=== PATIENT | male | born 1950 | race Caucasian/White ===

== ENCOUNTER 2024-08-06 10:14 | Outpatient (CLI) | payer MEDICARE, SELFPAY ==
--- NOTE | ~2024-08-06 | CT_ITS ---
CT Scan of the Chest without Contrast: Clinical Indication: Pleural effusion Technique: Contiguous sections were acquired throughout the chest without intravenous contrast. Dose reduction technique was used on this scan by utilizing automated exposure control and iterative recon struction technique. The dose-length product (DLP) was 274.13 mGy-cm. Findings: There is no evidence of any significant mediastinal, hilar or axillary lymphadenopathy. Large densely calcified lymph nodes are present at the left hilum and AP window region.. There is no evidence of pleural or pericardial effusion. There is moderate emphysema. There is left upper lobe scarring and architectural distortion with calc ified granulomas. There is patchy bibasilar airspace disease, right worse than left, with interstitia l thickening and small irregular nodules. Images through the upper abdomen reveal multiple Celsite splenic and hepatic granulomas. Calcified ga llstones are present.. Impression: Findings of the lung bases, right worse than left, which could reflect acute on chronic small airways infectious process versus chronic interstitial disease and scarring/post inflammatory change. Correl ate with patient's symptomatology. Left upper lobe scarring. Moderate emphysema. Evidence of prior granulomatous disease. Reviewed, dictated and finalized at location . Impression: Findings of the lung bases, right worse than left, which could reflect acute on chronic small airways infectious process versus chronic interstitial disease a nd scarring/post inflammatory change. Correlate with patient's symptomatology. Left upper lobe scarring. Moderate emphysema. Evidence of prior granulomatous disease.
--- OUTSIDE RECORDS SUMMARY | 2024-08-06 10:31 | XMS_ITS | Encounter Summary ---
Author Organization [facility] Address [address] [place] [address] Care Team Providers Care Public Health Technician Name Role Phone Jeannette Llanos MD Unavailable [phone] Encounter Details Date Type Department Care Team (Late st Contact Info) Description 05/14/2018 Lab Requisition [facility] [address] [place] [id number] Delmy Mayorga MD [address] [facility] [address] [place] [id number] Social History Tobacco Use Types Packs/Day Years Used Date Smoking Tobacco: Never Assessed Sex and Gender Information Value Date Recorded Sex Assigned at Not on file Legal Sex Male 10:31 AM CDT Gender Identity Not on file Sexual Orientation Not on file documented as of this encounter Plan of Treatment Not on file documented as of this encounter Procedures Procedure Name Priority Date/Time Associated Diagnosis Comments DERMATOPATHOLOGY Routine 05/13/2018 12:0 0 AM CDT documented in this encounter Results * DERMATOPATHOLOGY (05/13/2018 12:00 AM CDT) Case Report Dermatopathology Report Case: [id number] Authorizing Provider: Delmy Mayorga MD Collected: 05/13/2018 12:00 AM Pathologist: Rhea Ryder MD Received: 05/14/2018 10:50 AM Specimen: Skin, left arm 9 1:36 PM CDT DERMATOPATHOLOGY LABORATORY Final Diagnosis Specimen A. SKIN, left arm: SOLAR LENTIGO; PRESENT AT MARGIN (L81.4) (see microscopic description and comment) 9 1:36 PM CDT DERMATOPATHOLOGY LABORATORY at 1336 CDT Clinical History Concern for melanoma vs atypical nevus. 1:36 PM CDT DERMATOPATHOLOGY LABORATORY Gross Description Specimen A: Received is one formalin filled container labeled with the patient's name and designated left arm. The specimen consists of a punch biopsy measuring [id number]. Jar 0. 1:36 PM CDT DERMATOPATHOLOGY LABORATORY Microscopic Description Specimen A. SKIN, left arm: There is orthokeratosis. There is a slight increase in epidermal thickness with lentiginous buds of hyperpigmented keratinocytes. The number of melanocytes is only mildly increased. In the dermis, there is basophilic degeneration of elastic fibers. Additional deeper sections were obtained and reviewed. COMMENT: The histopathologic findings of the portion of the lesion sampled are reassuring. However, as this lesion is present at the margins of the specimen, clinicopathological correlation is recommended as to the nature of the remaining lesion. 1:36 PM CDT DERMATOPATHOLOGY LABORATORY Disclaimer An external and internal positive and negative controls are appropriate for the histochemical, immunohistochemical and immunofluorescence stain(s) in this case (if any), except where stated explicitly. The performance characteristics of the stain(s) cited in this report were developed and its performance characteristic determined by the Dermatopathology Laboratory at [facility], directed by Dr. Taran Masterson. These tests need not be, and therefore are not, approved by the [place] Food and Drug Administration. The tests are used for clinical purposes. Billing Codes Specimen Charges Stain Charges 50027 1 1:36 PM CDT DERMATOPATHOLOGY LABORATORY Embedded Images 1:36 PM CDT DERMATOPATHOLOGY LABORATORY Pathology/Cytolog y TISSUE SPECIMEN FROM SKIN / Unknown 05/13/2018 05/14/2018 10:50 AM CDT us Delmy Mayorga MD LAB - PATHOLOGY/CYTOLOGY ORD ERABLES Final Result DERMATOPATHOLOGY LABORATORY [facility] - Department of Dermatology [address] [place] [address], [address] [place] [address], [facility] [phone] documented in this encounter Visit Diagnoses Not on filedocumented in this encounter Care Teams Public Health Technician Relationship Specialty Start Date End Date Jeannette Llanos MD [address] [phone] PCP - Attributed-[facility] 12/06/18 documented as of this encounter
--- OUTSIDE RECORDS SUMMARY | 2024-08-06 10:31 | XMS_ITS | Encounter Summary ---
Author Organization [facility] Address [address] [place] [address] Phone [email or web address] Care Team Providers Care Gas Cutter Name Role Phone Kim Uribe MD Primary Care Provider [phone] Reason for Referral * Imaging (Routine) - Authorized Specialty Diagnoses / Procedures Referred By Yi gonzalez Referred To Contact Radiology Diagnoses Pulmonary nodule Procedures CT chest wo IV contrast Kim Uribe MD [address] [place] [address] Phone: tel: fax: Referral ID Status Reason Start Date Expiration Date V isits Requested Visits Authorized [id number] Authorized 05/29/2024 05/29/2025 1 1 Encounter Details Date Type Department Care Team (Late st Contact Info) Description 05/29/2024 [id number] [place] [address] Kim Uribe MD [address] [place] [address] Pulmonary nodule (Primary Dx) Social History Tobacco Use Types Packs/Day Years Used Date Smoking Tobacco: Never Assessed Sex and Gender Information Value Date Recorded Sex Assigned at Male 05/09/2024 4:14 PM CDT Legal Sex Male 3:18 PM CDT Gender Identity Not on file Sexual Orientation Not on file documented as of this encounter Plan of Treatment Scheduled Orders Name Type Priority Associated Diagnoses Orde r Schedule CT chest wo IV contrast Imaging Routine Pulmonary nodule Expected: 06/12/2024, Expires: 05/29/2025 documented as of this encounter Visit Diagnoses Diagnosis Pulmonary nodule- Primary Other diseases of lung, not elsewhere classified documented in this encounter Care Teams Gas Cutter Relationship Specialty Start Date End Date Kim Uribe MD [address] [place] [address] PCP - General 05/09/24 documented as of this encounter
--- OUTSIDE RECORDS SUMMARY | 2024-08-06 10:31 | XMS_ITS | Encounter Summary ---
Author Organization [facility] Address [facility], [facility] [place] [address] Care Team Providers Care Manufacturer Name Role Phone None, Provider Primary Care Provider Gordo Rojo DO Primary Care Provider [phone] Encounter Details Date Type Department Care Team (Late st Contact Info) Description 09/20/[address] [facility] [place] [address] Kim Sanchez, [place] [address] Social History Tobacco Use Types Packs/Day Years Used Date Smoking Tobacco: Former Cigarettes 1 20 1 961 - 1980 Smokeless Tobacco: Never Alcohol Use Standard Drinks/Week Comments Not Currently 0 (1 standard drink = 0.6 oz pur e alcohol) Sex and Gender Information Value Date Recorded Sex Assigned at Not on file Legal Sex Male 12:23 PM CDT Gender Identity Not on file Sexual Orientation Not on file documented as of this encounter Plan of Treatment Not on file documented as of this encounter Visit Diagnoses Not on filedocumented in this encounter Care Teams Manufacturer Relationship Specialty Start Date End Date None, Provider, PCP - General 08/08/19 12/06/20 Gordo Villarreal DO PCP - General FAMILY PRACTICE 12/07/20 documented as of this encounter
--- OUTSIDE RECORDS SUMMARY | 2024-08-06 10:31 | XMS_ITS | Encounter Summary ---
Author Organization [facility] Address [address] [place] [address] Phone [email or web address] Care Team Providers Care Survey Crew Chief Name Role Phone Kim Uribe MD Primary Care Provider [phone] Reason for Referral * Imaging (Routine) - Authorized Specialty Diagnoses / Procedures Referred By Contac t Referred To Contact Radiology, Diagnostic / Radiology Diagnoses Pleural effusion Pulmonary nodule Procedures CT chest wo IV contrast Kim Uribe MD [address] [place] [address] Phone: tel: fax: [facility] [address] [place] [address] Phone: tel: Referral ID Status Reason Start Date Expiration Date V isits Requested Visits Authorized [id number] Authorized 05/05/2024 05/05/2025 1 1 Encounter Details Date Type Department Care Team (Late st Contact Info) Description 05/05/2024 [facility] [address] [place] [address] [place] [address] [place] [address] Pleural effusion (Primary Dx); Pulmonary nodule Social History Tobacco Use Types Packs/Day Years [...] CT chest wo IV contrast Imaging Routine Pleural effusion Pulmonary nodule Expected: 05/19/2024, Expires: 05/05/2025 documented as of this encounter Visit Diagnoses Diagnosis Pleural effusion- Primary Unspecified pleural effusion Pulmonary nodule Other diseases of lung, not elsewhere classified documented in this encounter Care Teams Survey Crew Chief Relationship Specialty Start Date End Date Kim Uribe MD [address] [place] [address] PCP - General 05/09/24 documented as of this encounter
--- OUTSIDE RECORDS SUMMARY | 2024-08-06 10:31 | XMS_ITS | Clinical Summary ---
Author Organization [facility] Address [address] [place] [address] Care Team Providers Care Rag Collector Name Role Phone Unavailable Primary Care Provider Unavailabl e Source Comments [facility],non-owned Affiliates and Associated Physician Practices is amultiple site organization consisting of ambulatory clinics and hospital sitesin [place], [place], [place] and [place]. This disclosure is being madepursuant to the Care Everywhere program and may not contain all information available regarding this patient. Last updated 17.[facility] Social History Tobacco Use Types Packs/Day Years Used Date Smoking Tobacco: Never Assessed Sex and Gender Information Value Date Recorded Sex Assigned at Not on file Legal Sex Male 10:31 AM CDT Gender Identity Not on file Sexual Orientation Not on file Plan of Treatment Health Maintenance Due Date Last Done Comments COLOGUARD (AGES 45-75) - COL ON CA SCREENING 1949 COLON MONITORING 1949 COLONOSCOPY - COLON CA SCREENING 1949 CT COLONOGRAPHY - COLON CA SCREENING 1950 Colorectal Cancer Screening 1949 FIT - COLON CA SCREENING 1949 FLEX SIG - COLON CA SCREENING 1949 LIPID TESTING 1949 HEPATITIS C SCREENING 06/03/1967 DTAP/TDAP/TD VACCINES (1 - Tdap) 1968 PNEUMOCOCCAL VACCINE 50+ (1 of 1 - PCV) 06/08/1999 ZOSTER VACCINE (1 of 2) 06/08/1999 COVID-19 VACCINE ( - 2023-2 5 season) 2023 DEPRESSION SCREENING 02/06/2024 Respiratory Syncytial Virus (RSV) Vaccine Pt: or over 60 yrs (1 - 1-dose 75+ series) 2024 INFLUENZA VACCINE (Season Ended) 2024 HEPATITIS B VACCINE Aged Out No longe r eligible based on patient's age to complete this topic HIB VACCINE Aged Out No longer eligi ble based on patient's age to complete this topic HPV VACCINE Aged Out No longer eligi ble based on patient's age to complete this topic MENINGOCOCCAL (Group B) VACC INE SHARED DECISION-MAKING Aged Out No longer eligibl e based on patient's age to complete this topic MENINGOCOCCAL GROUPS A/C/Y/W VACCINE Aged Out No longer eligible b ased on patient's age to complete this topic Insurance MANAGED MEDICARE ADV
--- OUTSIDE RECORDS SUMMARY | 2024-08-06 10:31 | XMS_ITS | Data Portability ---
Author Organization [facility] RAHELGuy Rockwell Address [address] [place] [address] Assessment No assessment recorded. Plan of Treatment Reminders Order Date Submit Date Provider Last Modified By Organization Details Last Modified Time Details Appointments None recorded. Lab None recorded. Referral physical therapy shoulder referral 2020 [facility] - Outpatient Physical Therapy Work Conditioning, [address] [facility], [place], [address], 12:25:22 Procedures None recorded. Surgeries None recorded. Imaging XR, shoulder, 2 or more view 2020 [facility] Scheduling, [place], [address], 10:55:41 Medication Orders Zithromax Z-Neel 250 mg tablet 2021 [facility] #[id number], [address], [place], [id number], 09:58:15 prednisone 20 mg tablet 2021 [facility] #[id number], [address], [place], [id number], 09:58:14 Breo Ellipta 100 mcg-25 mcg/dose powder for inhalation 2020 [address] [place] [address] [facility], [address], [address], [place], [place], [id number], 10:55:41 sildenafil 50 mg tablet [address] [place] [address] [facility], [address], [address], [place], [place], [id number], 10:55:41 omeprazole 20 mg capsule,de layed release [address] [place] [address] [facility], [address], [address], [place], [place], [id number], 10:55:41 Breo Ellipta 100 mcg-25 mcg/dose powder for inhalation 2020 [place] [facility], [address], [address], [place], [place], [id number], 11:03:41 ProAir HFA 90 mcg/actuat ion aerosol inhaler 2020 [place] [facility], [address], [address], [place], [place], [id number], 11:03:43 albuterol sulfate 2.5 mg/3 mL (0.083 %) solution for nebulizati on 2020 [place] [facility], [address], [address], [place], [place], [id number], 11:03:42 montelukas t 10 mg tablet 2020 [place] [facility], [address], [address], [place], [place], [id number], 11:03:43 omeprazole 40 mg capsule,de layed release 2020 [place] [facility], [address] [place] [address], [facility] [address], [place], [place], [id number], 11:03:42 finasterid e 5 mg tablet 2020 [place] [facility], [address] [place] [address], [facility] [address], [place], [place], [id number], 11:03:40 Patient TargetsNo targets recorded. Patient Instructions Encounter Date Encounter Id Patient Instructions Last Modified By Organization Details Last Modified Time 05/20/2020 [id number] I was present an d available in the Family Medicine clinic to discuss this patient's care during the appointment. I agree with the resident's assessment and plan as documented. Hal Padron [email or web address] Not available 05/21/2020 16:06:07 06/25/2020 [id number] gastroesophageal reflux disease (GERD): care instructions Not available 06/25/2020 11:17:16 shoulder stretch es: exercises Not available 06/25/2020 11:14:21 shoulder pain: c are instructions Not available 06/25/2020 11:14:22 I was present an d available in the family medicine clinic to discuss the patient's care during the appointment. I agree with the resident's assessment and plan as documented. HL [email or web address] Not available 06/26/2020 07:02:46 12/07/2020 [id number] A healthy lifestyle: care instructions Not available 12/07/2020 10:55:41 gastroesophageal reflux disease (GERD): care instructions Not available 12/07/2020 10:55:41 shoulder pain: c are instructions Not available 12/07/2020 10:55:42 I was present an d available in the Family Medicine clinic to discuss this patient's care during the appointment. I agree with the resident's assessment and plan as documented. KGR [email or web address] Not available 12/07/2020 11:06:06 05/05/2021 [id number] bronchitis: care instructions Not available 05/05/2021 09:58:25 Reason for Referral Referring Physician: Gordo Villarreal, Order Control Clerk Blood Bank, Encounter Date: 06/25/2020 Results Created Date Observation Date Name Description Value Unit Range Abnormal Flag Note LastModifiedBy Organization Detail LastModifiedTime 12/08/19 21 xr shoul nathaly lt 3V [facility] [place] [address] Examin ation: 2 or more views left should er Access ion: [id number] Exam date/t kamlesh: 10:09 AM Reason For Exam: pain Pain for one year which awaken s the patien t at night. No known injury . Compar dora: None Techni que: AP, Grashe y, and scapul ar Y views were obtain ed. Findin gs: Calcif ied granul veto in the left upper lung. Calcif ied hilar lymph nodes includ ed in field- of-vie w. Visual ized left upper lung otherw ise clear. The glenoh umeral relati onship is preser paulette. No eviden ce of acute fractu re or disloc ation. No destru ctive osseou s lesion s. No unexpe cted radiop aque foreig n bodies . ====== ===== IMPRES ROD: ====== ===== 1. No acute osseou s abnorm alitie s by plain film evalua tion. ====== ====== ====== ====== ====== ==== Referr ed By: Mejia latham Signed By: Wily white MD on 10:34 AM Interp reted By: Wily white MD, 10:33 AM [facility] [address] [facility], [place], [address], 12/09/2020 11:51:38 Result Notes None recorded. Problems Name Problem SNOMED Code Status Onset Date Resolution Date Notes Provider Name and Address Organization Details Recorded Time Asthma 618002135 Active 2016 Nicolle Villaseñor PA-C Attn: Accounting ,[address] [place], [address] , [place] [facility] 7 14:50:17 Arthriti s 1111042 Active 2019 Bilatera l hands, shoulder s, knees (though s/p TKA on 2014) Eyal Bolivar null, [place] [facility] 0 15:54:14 Allergic rhinitis 34913940 Active 2019 Eyal [place] [facility] 0 15:54:43 Benign prostati c hyperpla krystal 194719416 Active 2019 Eyal [place] [facility] 0 15:55:27 Chronic obstruct denita pulmonar y disease 47043443 Completed 201611/09/2016 Niurka Mortensen MD Attn: Accounting ,[address] [place], [address] , [place] [facility] 7 10:07:49 Primary erectile dysfunct ion 037398166 Completed 201611/09/2016 Niurka Mortensen MD Attn: Accounting ,[address] [place], [address] , [place] [facility] 7 10:08:10 Problem Notes None recorded. Procedures Surgical History Date Name Laterality Status Provider Name and Address Organization Details Recorded Time 05/13/2018 Punch Biopsy completed Valdez Dud[place] - [facility] 05/13/2018 15:50:07 Imaging Results None recorded. Procedure Notes None recorded. Medical Equipment None Reported. Allergies Allergen ID Allergen Name Allergen Category Reaction Reaction Severity Criticality Documentation Date Start Date Code Code System Note Provider Name and Address Organization Details Recorded Time 49256 Product containin g penicilli n (product) medicatio n Not available Not available Not available 03/17/2016 93384 8001 SNOMED Angi Bullock CMA null, [place] - [facility] 7 16:52:32 Medications Name Sig Start Date Stop Date Status Note LastModified by Organization Details LastModified Time clindamycin hcl 300 mg caps 07/21 completed Not Available Not Available Not Available albuterol sulfate hfa 108 mcg/act aers active Not Available Not Available Not Available breo ellipta inh 100-25 active Not Available Not Available Not Available prednisone 10 mg tablet 3 tablets for 3 days, 2 tablets for 3 days, 1 tablet for 3 days active Not Available Not Available No t Available naproxen 375 mg tablet TAKE 1 TABLET BY MOUTH TWICE DAILY active Not Available Not Available No t Available clindamycin HCl 300 mg capsule Take 1 capsule every 6 hours by oral route as directed for 7 days. 07/21 completed Not Available Not Available Not Available albuterol sulfate 2.5 mg/3 mL (0.083 %) solution for nebulizatio n Inhale 3 mL 3 times a day by nebulizat ion route as needed. active Not Available Not Available No t Available sildenafil 50 mg tablet Take 1 tablet every day by oral route. active Not Available Not Available No t Available azithromyci n 250 mg tablet TK 2 TS PO ON DAY 1, THEN TK 1 T PO D FOR 4 DAYS active Not Available Not Available No t Available hydrocodone 5 mg-acetamin ophen 325 mg tablet TAKE 1 2 TABLETS BY MOUTH EVERY 6 HOURS NEEDED FOR PAIN. 05/20 completed Not Available Not Available Not Available prednisone 20 mg tablet TAKE 2 TABLETS BY MOUTH EVERY DAY FOR 5 DAYS active Not Available Not Available No t Available sulfamethox azole 800 mg-trimetho prim 160 mg tablet TAKE 1 TABLET BY MOUTH 2 TIMES DAILY 06/25 completed Not Available Not Available Not Available omeprazole 40 mg capsule,del ayed release Take 1 capsule(s ) every day by oral route. 2020 active Not Available Not Available Not Avai lable prednisone 10 mg tablets in a dose pack Take four tablets on day 1; four tablets on day 2; 3 tablets on day 3; 2 tablets on day 4 and 1 tablet onday 5 2021 active Not Available Not Available Not Avai lable doxycycline monohydrate 100 mg capsule Take 1 capsule twice a day by oral route for 10 days. 06/25 completed Not Available Not Available Not Available promethazin e 25 mg tablet 04/24 completed Not Available Not Available Not Available omeprazole 20 mg capsule,del ayed release Take 1 capsule every day by oral route. active Not Available Not Available No t Available montelukast 10 mg tablet TAKE 1 TABLET BY MOUTH ONCE DAILY active Not Available Not Available No t Available finasteride 5 mg tablet TAKE 1 TABLET BY MOUTH DAILY active Not Available Not Available No t Available Ventolin HFA 90 mcg/actuati on aerosol inhaler Inhale 2 puff(s) every 4-6 hours by inhalatio n route as needed. 2021 active Not Available Not Available Not Avai lable guaifenesin 400 mg tablet Take 1 tablet every 4 hours by oral route for 7 days. 04/24 completed Not Available Not Available Not Available Boostrix Tdap 2.5 Lf unit-8 mcg-5 Lf/0.5 mL intramuscul ar syringe 04/24 completed Not Available Not Available Not Available GaviLyte-N 420 gram oral solution 04/24 completed Not Available Not Available Not Available niacin ER 500 mg tablet,exte nded release Take 2 tablets every day by oral route. 04/24 completed Not Available Not Available Not Available Breo Ellipta 100 mcg-25 mcg/dose powder for inhalation Inhale by inhalatio n route for 100 days. active Not Available Not Available No t Available Fluzone High-Dose 7165-2077 (PF) 180 mcg/0.5 mL intramuscul ar syringe 04/24 completed Not Available Not Available Not Available Fluzone High-Dose 3594-1471 (PF) 180 mcg/0.5 mL intramuscul ar syringe 04/24 completed Not Available Not Available Not Available Fluad 65yr up(PF)45 mcg(15 mcgx3)/0.5 mL intramuscul ar syringe 04/24 completed Not Available Not Available Not Available Vitals Date Recorded Body height Body mass index (BMI) Body weight Heart rate Respiratory rate Oxygen saturation Oxygen saturation in Arterial blood by Pulse oximetry Systolic blood pressure Diastolic blood pressure Provider Name and Address Organization Details Last Updated DateTime 2 165.74 cm 30.4 kg/m2 81261 g 71 /min 18 /min 98 % 98 % 110 mm[Hg] 78 mm[Hg] Gordo Villarreal [facility] 2 09:51:42 Date Recorded Body height Body mass index (BMI) Body weight Heart rate Oxygen saturation Oxygen saturation in Arterial blood by Pulse oximetry Body temperature Respiratory rate Systolic blood pressure Diastolic blood pressure Provider Name and Address Organization Details Last Updated DateTime 1 165.74 cm 32 kg/m2 44589.9 2 g 78 /min 98 % 98 % 97.9 [degF] 16 /min 122 mm[Hg] 72 mm[Hg] Yonathan Rodríguez CMA [facility] 1 12:13:26 Date Recorded Body height Body mass index (BMI) Body weight Heart rate Oxygen saturation Oxygen saturation in Arterial blood by Pulse oximetry Body temperature Respiratory rate Systolic blood pressure Diastolic blood pressure Provider Name and Address Organization Details Last Updated DateTime 1 165.74 cm 31.2 kg/m2 27577.0 1 g 81 /min 96 % 96 % 98.8 [degF] 14 /min 134 mm[Hg] 70 mm[Hg] Yonathan Rodríguez CMA [facility] 1 10:48:17 Date Recorded Body height Body mass index (BMI) Body weight Body temperature Heart rate Oxygen saturation Oxygen saturation in Arterial blood by Pulse oximetry Systolic blood pressure Diastolic blood pressure Provider Name and Address Organization Details Last Updated DateTime 1 165.74 cm 30.4 kg/m2 02146.0 5 g 98.8 [degF] 78 /min 96 % 96 % 128 mm[Hg] 74 mm[Hg] Dalila Lombardo MA [facility] 1 09:49:00 Social History Question Answer Notes LastModified by Audience Details LastModified Time Tobacco Smoking Status Former Smoker Angi Bullock CMA null, [facility] 03/17/2016 16:52:38 What Was The Date Of Your Most Recent Tobacco Screening? 12/07/2020 Information not available 12/07/2020 Sex: Unknown Functional Status Question Answer Note LastModified by Audience Details LastModified Time Do you or have you ever used smokeless tobacco? Never used smokeless tobacco Information not available 04/25/2019 Do you or have you ever used e-cigarettes or vape? Never used electronic cigarettes Information not available 04/25/2019 Mental Status None recorded. Family History Nothing Reported. Medical History No medical history recorded. Immunizations Vaccine Type Date Status Note Provider Nam e and Address Organization Details Recorded Time Influenza, high-dose, quadrivalent, PF 0 completed Yonathan Rodríguez CMA [place], [place] [facility] 10/27/2019 17:11:25 Pneumococcal conjugate PCV 13 8 completed Not Available [facility] 02/22/2019 02:49:14 Tdap 9 completed Not Available [facility] 02/22/2019 02:46:06 pneumococcal polysaccharide PPV23 9 completed Not Available [facility] 02/22/2019 02:37:04 COVID-19, mRNA, LNP-S, PF, 100 mcg/0.5mL dose or 50 mcg/0.25mL dose 1 completed Amanda Raymond RN null, [place] [facility] 04/21/2020 15:36:30 COVID-19, mRNA, LNP-S, PF, 100 mcg/0.5mL dose or 50 mcg/0.25mL dose 1 completed Amanda Raymond RN [place], [place] [facility] 05/19/2020 14:48:19 Influenza, high-dose, trivalent, PF 7 completed Nicolle Villaseñor PA-C Attn: Accounting[address] [place], [address], [facility] - [facility] 01/30/2017 14:49:20 Past Encounters Encounter ID Performer Location Encounter Start Date Encounter Closed Date Diagnosis/Indication Diagnosis SNOMED-CT Code Diagnosis ICD10 Code Diagnosis Note [id number] MD [facility] ([address]) [address] [place] [address] 03/17/2016 16:37:02 03/20/2016 10:19:08 Asthma 199517435 J45.909 Refilled Breo inhaler and albuterol in haler. Lungs clear on exam. Added jorge melendez g his albuterol use. Gave instructio n to call clinic if he had to use albuterol >3x/week and to seek immediate evaluation in case of an exacerbati on. Osteoarthritis 690287762 M19.90 Was using diclofenac 75mg, however, he noted no relief of his pain which is present most prominentl y in his hands and left shoulder. Advised d/c of this medication and will trial naproxen 375mg BID. [facility] 326163161 Z00.00 Colonoscop y 3yrs ago. Followed by Dr. Valente. Mentions symptoms of ED today in office, advised to call his insurance and find out which medication s are covered and to call back if he would like a prescripti on for one. He voiced understand ing. No cardiac or hypotensiv e history, not taking any nitrates at this time. Benign pro static hyperplasia 368542179 N40.1 Refill provided, symptoms well controlled on current regimen. No changes needed. [id number] MD [facility] ([address]) [address] [place] [address] 07/24/2016 09:36:27 07/26/2016 11:28:00 Asthma 874132556 J45.909 Refills provided for 3 months. Well controlled on current regimen, no changes needed. Resubmit request for prior records. Reduced libido 6284472 R 68.82 We will screen testostero ne levels at this time and replace as needed. Advised to find coupons/fr ee samples of sildenafil /tadalafil given the cost. He voiced understand ing. F/U 1 month. Obese 509293894 E66.9 Recommende d calorie counting and reducing intake by 300-500cal /day. Continue current exercise routine. [facility] 948896582 Z00.00 States that he received a bill from his prior physician' s office regarding his request records. I will have the front end drupal developer look into this. [id number] MD [facility] ([address]) [address] [place] [address] 08/18/2016 08:45:22 08/18/2016 16:54:09 Primary erectile dysfunction 337465431 N52.9 Discussed testostero ne level results which were normal. Advised filling out the assistance pathway available on [employer]'s website for discounted rates on pde-inhibi tors. He voiced understand ing. Also discussed picking up his records from his PCP's office and physically bringing them back to our offices. [id number] [facility] [address] [address] 01/30/2017 14:34:36 02/07/2017 16:29:20 Acute asthma 632580743 J45.901 Will treat for asthma exacerbati on and based on patient's wheezing and hx/o pneumonia with treat with abx as wellTake prednisone taper as prescribed Take abx as prescribed If no improvemen t advised to contact clinic or [facility] to drink plenty of waterAlter kell ibuprofen and tylenol for painRest [id number] [facility] [address] [place] [address] 02/27/2017 13:58:31 03/05/2017 14:51:57 Persistent cough 846292398 R05 No red flag symptoms at this time, will provide guaifenesi n to help relieve chest congestion . If cough persists beyond an additional two weeks, will investigat e with chest xray. Asthma 644504628 J45.90 9 Will provide prednisone burst at this time. If still using albuterol >3x/week after two weeks will increase Breo to 200/25mcg. [id number] Arianna Paez DO [place] [address] [address] [address] 08/02/2017 13:36:43 08/02/2017 17:14:12 Osteoarthritis 987656990 M19.90 naproxen- not refilled as no BMPwill check BMP/urine microalbum in- if normal, will continue naproxen- needs to RTC for general health visitBM P WNL, will refill naproxen Medication monitoring 39 1302327 Z51.81 on niacinno recent lipid panel-will recheck [id number] Sean Burrell DO [address] [address] 12/25/2017 09:50:07 12/31/2017 14:46:57 Low back pain 021776082 M54.5 Low back pain, acute Pt has 3 wk hx of bilat lumbar lbp 2/2 weight lifting. Pt states pain has not fully resolved. pt had no alarm sx of bowel or bladder problems. PE remarkable for tender paraspinal muscles lumbar and no bony tenderness SLR test neg bilat, sacral compressio n neg. As pt is of older age it is reasonable to get XR to r/o frax. -lumbar/sa cral xray-tylen ol prn-motrin prn Active or passive immunization 561733840 Z23 [id number] [facility] [address] [address] 05/10/2018 10:04:38 05/13/2018 12:00:38 Adult health examination 057563525 Z00.00 -doing well- works out-UTD on colon (03/2017)- vaccines today- needs AAA screening (distant smoking hx) Hand pain 51054520 M79.6 42 pain from overuse from gym- on thenar and hypothenar eminences - advised to spread out work outs (divide upper and lower workouts as he currently does everything each visit_- tinels/pha lens negative- not likely related to median nerve Skin lesion 50115425 L98 .9 lentigo vs nevus-tanesha ent states it is changingle ft forearm- advised to RTC for procedures for possible excision Active or passive immunization 418193540 Z23 [id number] Sean Burrell DO [place] [address] [address] [address] 05/13/2018 14:21:53 05/14/2018 10:00:00 Change in skin lesion 403413106 L98.9 Changing skin lesion, increasing in size and changing color. Concern for melanoma vs atpical nevus- 3mm punch biopsy taken at border- Sent to pathology, paper order filled out- Will follow up with results, if positive will send to dermatolog y [id number] [facility] [address] [address] 04/25/2019 15:41:23 04/28/2019 08:55:14 Asthma 070245997 J45.909 Sx controlled on current regimen- continue current plan and monitor Arthritis 3444071 M19.90 Sx controlled on current regimen- continue current plan and monitor Benign pro static hyperplasia 251835332 N40.1 Sx controlled on current regimen- continue current plan and monitor Allergic rhinitis 153335 04 J30.9 Sx controlled on current regimen- continue current plan and monitor Body mass index 25-29 - overweight 278541515 Z68.27 given age, his weight is likely appropriat e [id number] Delmy Mayorga MD [facility] 47 3 [facility] [address] [place] [address] 07/10/2019 09:05:31 07/11/2019 11:19:07 Cellulitis 171088176 L03.90 AcutePatie nt with known cyst of lower back which had removed ~5 years ago and told would recur. Now with 1 week history of increasing tenderness and erythema. No dischargeN o systemic signs of infection including fever or chills.Amos l treat with short course of clindamyci n 300mg q6h x7 days.Ibupr ofen/Tylen ol PRN for discomfort If no improvemen t or worsening of symptoms patient to notify office and will order ultrasound to better visualize size and refer to general surgery for possible excision. [id number] Delmy Mayorga MD [facility] 47 3 [facility] [address] [place] [address] 07/22/2019 12:10:23 07/29/2019 16:44:48 Abscess of skin and/or subcutaneous tissue 95212345 L02.91 Acute Patient with known cyst of lower back which had removed ~5 years ago and told would recur.Was treated on 07/10/19 with course of cellulitis but now with worsening pain and purulent drainageNo systemic signs of infection including fever or chills. Patient has previously been referred to general surgery for evaluation and he was provided number of office to call to schedule appointmen tI attempted to expel as much purulent drainage as possible but this was limited 2/2 patient discomfort Patient to call surgeons office today to schedule office visit for possible I/D and removal of cystWill start 10 day course of doxycyclin e at this timeIbupro fen/Tyleno l PRN for discomfort Patient to follow up with PCP within 1 week or sooner if unable to see general surgery and has worsening symptomsPa tient to present to ED if develops fever, chills, nausea, vomiting, rapid heart rate, or overall not feeling well. [id number] ABNER ThurstonChun phillips [address] [place] [address] 07/23/2019 11:43:32 07/24/2019 11:16:27 Viral screening 466956985 Z11.59 D/w pt the current pandemic of COVID-19 and call for social isolation in order to blunt the curve and minimize risk and spread. Encouraged patient and family to take restrictio ns seriously. They have verbalized understand ing of such. Viral syndrome 367739281 B34.9 [id number] Delmy Mayorga MD [place] [address] [address] [address] 04/21/2020 11:54:13 04/22/2020 09:17:08 Administration of SARS-CoV-2 antigen vaccine 270315822 Z23 [id number] Verito Chacon MD [place] [address] [address] [address] 05/19/2020 12:05:15 05/20/2020 14:40:22 Administration of SARS-CoV-2 antigen vaccine 239673353 Z23 [id number] Hal Padron MD [address] [address] 05/20/2020 12:04:43 05/24/2020 12:15:03 Pain of shoulder region 15439212 M25.519 Chronic. Uncontroll ed. Chronic B/L shoulder pain worse last couple weeks. Taking ibuprofen and naproxen. Exam normal. Likely arthritis rather than rotator cuff injury vs impingemen t vs labral tear. -Advised to d/c ibuprofen while taking BID naproxen - stick to 1 NSAID -Recommend ed OTC: tylenol max 1000mg Q8 PRN, topical diclofenac gel PRN -F/u with PCP if no improvemen t - consider PT or steroid injections at that time [id number] Delmy Mayorga MD [facility] 47 3 [facility] [address] [place] [address] 06/25/2020 10:33:50 06/28/2020 11:42:54 Asthma 807004631 J45.909 Chronic, controlled on Breo Ellipta with albuterol prn. CAT score of 20. Lung exam unremarkab le. No ED visit in decades. - Continue Breo Ellipta daily - Albuterol prn for symptoms of SOB, chest tightness - Control allergies - ED precaution s given - F/U 1 year or sooner if needed Allergic rhinitis 692146 04 J30.9 Sx controlled on current regimen - continue current plan and monitor Benign pro static hyperplasia [id number] N40.1 Sx controlled on current regimen - continue current plan and monitor Pain of sh ould region [id number] M25.519 Chronic. Uncontroll ed. Chronic B/L shoulder pain worse last couple weeks. Taking naproxen, using Voltaren gel which is only mildly effective. Exam most consistent with rotator cuff syndrome with bicipital tendonitis +/- labral involvemen t. Likely OA component with age. No indication of acute bursitis today. - Advised to limit Naproxen with GERD - Recommende d OTC: tylenol max 1000mg Q8 PRN, topical diclofenac gel PRN, Ice 20 minutes 3-4x day - Provided HEP, send for PT - F/U 6 weeks after at least 3 sessions of PT - Consider x-ray and orthopedic referral if non-improv ing Gastroesop hageal reflux disease [id number] K21.00 Chronic, 1 year. Likely causing some esophagiti s irritated by large food bolus. Heartburn not controlled by multiple tums prn. - PPI therapy trial 6-8 weeks - F/U 6 weeks - If non-improv ing, send to GI for EGD evaluation [id number] Mika Barron MD [facility] [address] [facility] [address] [place] [address] 12/07/2020 09:06:29 12/09/2020 09:49:04 Obesity 659980004 E66.9 Asthma [id number] J45.90 9 Chronic, controlled on Breo Ellipta with albuterol prn. CAT score of 20. Lung exam unremarkab le. No ED visit in decades. - Continue Breo Ellipta daily - Albuterol prn for symptoms of SOB, chest tightness - Control allergies - ED precaution s given - F/U 1 year or sooner if needed Erectile dysfunction [id number] F52.21 Likely primary with age. Seldom need for use. Gastroesop hageal reflux disease [id number] K21.00 Chronic, 1 year. Likely causing some esophagiti s irritated by large food bolus. Heartburn not controlled by multiple tums prn. Benefits from PPI.- Will continue lower dose daily and likely transition to H2 antagonist in 3 months Pain of [facility] region [id number] M25.519 Chronic. Uncontroll ed. Chronic B/L shoulder pain worse last couple weeks. Taking naproxen, using Voltaren gel which is only mildly effective. Exam and history now most consistent with OA., especially with age. No indication of acute bursitis today. No improvemen t and primarily aggravatio n with PT. - Advised to limit Naproxen with GERD - Recommende d OTC: tylenol max 1000mg Q8 PRN, topical diclofenac gel PRN, Ice 20 minutes 3-4x day- Continue HEP- Ortho referral if OA noted on x-ray [id number] Avelina Lyman MD [place] [address] [address] 05/05/2021 09:10:47 05/05/2021 16:43:25 Acute bronchitis [id number] J20.9 Hx of asthma with increased bronchi/br onchiole mucus production /irritatio n causing wheezing requiring increased CHARITY use. Overall, appears well with normal O2 sat. Will treat with course of Prednisone and azithromyc in. Education and supportive care discussed. Health Concerns Section Related Observation LastModified by Organization Detai ls LastModified Time None Recorded Concern Status LastModified by Organization Details LastModified Time None Recorded Advance Directives Directive None Recorded Payers Insurance Date Sequence Insurance Name Policy Number Policy Landeros Covered Member ID Landeros Member ID Guarantor Name 06/28/2023 GENERIC MEDICARE - PART B (MOVED TO HOLD) [id number] Mika Santiago 06/28/2023 1 [facility] (MEDICARE REPLACEMENT/A DVANTAGE - HMO) [id number] Mika Santiago [id number] Mika Ovalle Jack 06/28/2023 [place]ICARE [place]: [facility] [id number] Mika [place] Mika Ovalle Jack 07/09/2018 1 [facility] [id number] Mika Waddell [id number] Mika Santiago Notes Date Note Type Note Provider Name and Address Organization Details Recorded Time 1 text/html 69yo M presents for arthritis flare up Shoulder Arthritis-B/L shoulder pain, R>L, wakes him up from his sleep when he turns on that side-x1 month-Using biofreeze before bed-Ibuprofen 600mg 1 hour before bed-Taking naproxen 375mg BID-Not alleviated with OTC Salonpas-Ramesh achkaty-09/14 at it's worst-No accidents/falls/injur ies Hal Padron MD Attn: [address] [place], [address], [facility] 05/21/2020 16:06:12 1 text/html Shoulder pain:Continues to have stabbing around joint, radiating in a band around shoulder About the same as last visit a few weeks ago No pain at restRolling over in sleep, lifting overhead causes painNo injuries to shoulder recentlyNaproxen and diclofenac only helping a little bit, but no very longRight shoulder ligament reattachment from work injury 10-15 years Dysphagia:Surgery on back last summer for cyst and was intubatedAches, bothersome with when swallowing especially with anything toughSlightly worse than last summerNo trouble with liquidsNo radiation therapy, cancer in throatEndorses heartburn, taking tums 3-4 times a day Asthma:Symptoms of chest tightness, SOB 2-3x week resolved with albuterolBreo daily has been helpfulNot using nebulizationNo hospitalizations/ED visits for asthma in decades Allergies: Taking Singulair without concerns for congestion, excessive runny nose, asthma flares BPH: Taking finasteride, no problems urinating, no blood in urine, no difficulty urinating Arina Scott MD Attn: [address] [place], [address], [facility] 06/26/2020 07:02:50 1 text/html Pt is a 70 yo M presenting for f/u of L shoulder pain. Pt states that daytime pain has improved with PT, but that he still awakens in the evening due 7/10 stabbing L shoulder pain. States that Salonpas patches help with the evening pain, but takes about 1 hour before pain subsides and pt can fall asleep. Takes naproxen qAM and qPM as well Tylenol to control pain which works well during the day. Performs home PT in addition to attending formal PT. No new numbness/tingling. No weakness in L arm/shoulder. Per indigestion, pt states that omeprazole worked very well in controlling sxs and is requesting a refill on omeprazole. Eats early meals. Has attempted to identify foods that bother him and avoid. Needs refill on breo ellipta Inquiring about Viagra, has used before. Denies any relationship problems or depression. States just often not in the mood with age and aches/pains. Mika Barron MD Attn: Accounting,[address] [facility], [place], [address], [facility] 12/07/2020 11:06:12 2 text/html Mr. Santiago is a 70 yo M presenting today with a cold x 3 weeks. Patient reports congestion and a productive cough with clear brown secretions. Patient reports waking up at night due to nasal congestion. Patient denies sore throat, fever, and chills. Patient has been using albuterol twice daily to manage acute onset dyspnea. LEIDY ENCARNACION DO Attn: Accounting,[address] [facility], [place], [address], [facility] 05/05/2021 12:17:20
--- OUTSIDE RECORDS SUMMARY | 2024-08-06 10:31 | XMS_ITS | Clinical Summary ---
Author Organization [facility] Address [address] [place] [address] Care Team Providers Care Cafe Cook Name Role Phone CherelleGordo sam Primary Care Provider [phone] Allergies Active Allergy Reactions Criticality Noted Date Comments Penicillins Rash Low 08/04/2019 Medications albuterol sulfate HFA 108 (90 Base) MCG/ACT inhaler Inhale 1 Inhaler into the lungs as needed. 0 Active BREO ELLIPTA 100-25 MCG/INH inhaler Inhale 1 Application into the lungs daily. 0 Active Sulfamethoxazol e-Trimethoprim (SULFAMETHOXAZO LE-TMP DS OR) Take 1 tablet by mouth 2 (two) times a day. Active naproxen 375 MG tablet Take 1 tablet by mouth 2 (two) times a day. 0 Active montelukast 10 MG tablet Take 1 tablet by mouth nightly. 0 Active finasteride 5 MG tablet Take 1 tablet by mouth daily. 0 Active Multiple Vitamins-Minera ls (MULTIVITAMIN ADULTS 50+ OR) Take 1 tablet by mouth daily. Active HYDROcodone-federico taminophen 5-325 MG tabletIndicatio ns:Acute Pain < 7 Day Supply Take 1-2 tablets by mouth every 6 (six) hours as needed for Pain. Indications: Acute Pain < 7 Day Supply 20 tablet 0 Active Active Problems No known active problems Family History Medical History Relation Comments Cancer Father Alzheimers Mother Relation Status Comments Father (Age 60) lung cancer Mother (Age 83) altzrobert's Son 1 Alive Son 2 Alive Social History Tobacco Use Types Packs/Day Years [...] on file Sexual Orientation Not on file Last Filed Vital Signs Vital Sign Reading Time Taken Comments Blood Pressure 126/76 08/13/2019 10:13 AM CDT Pulse 73 08/13/2019 10:13 AM CDT Temperature 36.4 C (97.6 F) 08/13/2019 10:13 AM CDT Respiratory Rate 18 08/13/2019 10:1 3 AM CDT Oxygen Saturation 96% 08/13/2019 10: 13 AM CDT Inhaled Oxygen Concentration - - Weight 80.7 kg (177 lb 14.6 oz) 08/13/2019 7:37 AM CDT Height 170.2 cm (5' 7) 08/13/2019 7:37 AM CDT Body Mass Index 27.86 08/13/2019 7:37 AM CDT Plan of Treatment Health Maintenance Due Date Last Done Comments Colorectal Cancer Screening Colonoscopy (10 Years) 1949 Hepatitis C 06[birth year]08/1967 Annual Medicare Wellness Visit 2014 Zoster Vaccines (2 of 3) 08/18/2015 06/23/2015 COVID-19 Vaccine (3 - 2023-2 5 season) 2023 05/19/2020, 04/21/2020 RSV Immunization or 60+ Years (1 - 1-dose 75+ series) 2024 DTaP, Tdap and Td Vaccines ( 2 - Td or Tdap) 05/10/2028 05/10/2018 Pneumococcal Vaccine: 50+ Years Completed 05/10/2018, 12/25/2017 Meningococcal B Vaccine Aged Out No l onger eligible based on patient's age to complete this topic Meningococcal Vaccine Aged Out No migue speedy eligible based on patient's age to complete this topic RSV Immunizations Under 20 Months Aged Out No longer eligible b ased on patient's age to complete this topic Insurance [facility] [place] [address] Care Teams Cafe Cook Relationship Specialty Start Date End Date Gordo Villarreal DO PCP - General FAMILY PRACTICE 12/07/20
--- OUTSIDE RECORDS SUMMARY | 2024-08-06 10:31 | XMS_ITS | Continuity of Care Document ---
Author Organization [facility] Address [address] [place] [address] Care Team Providers Care Receiver/Laborer Name Role Phone Torres Parry APRN Unavailable Unavailable Allergies, Adverse Reactions, Alerts Substance Reaction Status Criticality Penicillins RashHives Active No Information Medications Medication Instructions Dosage Effective Dates (start - stop) Status Comments Montelukast Sodium 10 MG Oral Tablet TAKE 1 TABLET BY MOUTH EVERY EVENING - Active Breo Ellipta 200-25 MCG/INH Inhalation Aerosol Powder Breath Activated USE 1 INHALATION BY MOUTH DAILY AT THE SAME TIME EACH DAY - Active ALBUTEROL HFA 90MCG/ACT (PA) USE 2 INHALATIONS BY MOUTH EVERY 4 TO 6 HOURS NEEDED - Active finasteride 5 mg tablet take 1 tablet by oral route every day 5 MG - Active Medrol (Neel) 4 mg tablets in a dose pack take by Oral route as directed Not Available - Active triamcinolone acetonide 0.1 % topical cream apply by topical route 2 times every day x 1 week - Active diclofenac sodium 75 mg tablet,delayed release take 1 tablet by oral route 2 times every day 75 MG - Active Procedures Procedure Date AMNT PAIN NOTED; NONE PRSNT MED LIST DOCD IN RCRD DEPRESSION SCREENING TOBACCO USE, SMOKING, ASSESS TOBACCO NON-USER PT SCRND UNHLTHY OH USE SYST BP GE 130 - 139MM HG DIAST BP < 80 MM HG OFFICE/OUTPATIENT VISIT, EST OFFICE/OUTPATIENT VISIT, NEW AMNT PAIN NOTED; NONE PRSNT MED LIST DOCD IN RCRD TOBACCO USE, SMOKING, ASSESS TOBACCO NON-USER SYST BP GE 130 - 139MM HG DIAST BP 80-89 MM HG Advance Directives Directive Yes / No Effective Date File Name No Information Encounters Encounter Description Practice Location Reason(s) For Visit Diagnoses Date Provider Providers Copied on Encounter [address], [id number] , [facility] Shohola Hgt No Information 5 Sohan Macdonald. [address] , [place], [place], [id number], . tel:[phone], [id number] , [facility] Shohola Hgt No Information 4 Sohan Macdonald. [address] , [place], [place], [id number], . tel:[phone], [id number] , [facility] Shohola Hgt No Information 3 Sohan Mcadonald. [address] , [place], [place], [id number], [place]. tel:[phone], [id number] , [facility] Shohola Hgt No Information 3 Sohan Macdonald. [address] , [place], [place], [address], [place]. tel:[phone] OFFICE/OUTPA TIENT VISIT, EST [address], [id number] , [facility] chronic conditions (chief complaint) Body mass index [BMI] 35.0-35.9, adultDietary counseling and surveillanceEx ercise counselingChro gary obstructive pulmonary disease, unspecified 2 Sohan Macdonald. [address] , [place], [place], [id number], [place]. tel:[phone] Referring Provider: Torres Parry, [address], [place], [address]. tel:[phone] OFFICE/OUTPA TIENT VISIT, [facility], [address] [place] [address], [id number] , [facility] Establishment (chief complaint) Dermatitis, unspecifiedBod y mass index [BMI] 34.0-34.9, adult Sep- 2 Sohan Macdonald. [address] , [place], [place], [id number], [place]. tel:[phone] Referring Provider: Torres Parry, [address], [place], [address]. tel:[phone] Family History Family Member Type Diagnosis Age At Onset Mother Problem (finding) Alzheimer's disease Mother Problem (finding) Diabetes mellitus Father Problem (finding) Allergies Father Problem (finding) Arthritis Father Problem (finding) Cancer, unknown Father Problem (finding) Hearing deficiency Mother Problem (finding) Obesity Payers Payer name Insurance type Covered alliance party ID Authoriza tion(s) No Information Social History Type Description Quantity Date Captured Comments Sex Male Smoking Status No Information Chief Complaint And Reason For Visit No Information Reason For Referral Reason For Referral No Information Plan Of Treatment Date Type Action Status Goal Hepatitis C screening. Due o n due Goal FIT. Due on due Goal FIT-DNA. Due on due Goal Td vaccine. Due on due Goal Zoster vaccine (1st). Due on due Goal Depression screening. Due on due Goal FOBT. Due on due Goal CT-Colonography. Due on due Goal Unhealthy drug use screening . Due on due Goal Colonoscopy. Due on due Goal Pneumococcal vaccine. Due on due Goal Lipid panel. Due on due Goal Tdap. Due on due Goal Influenza vaccine. Due on due Goal Lifestyle education regardin g diet completed Goal Hepatitis C screening. Due o n due Goal FIT. Due on due Goal FIT-DNA. Due on due Goal Td vaccine. Due on due Goal Zoster vaccine (). Due on due Goal Depression screening. Due on due Goal FOBT. Due on due Goal CT-Colonography. Due on due Goal Unhealthy drug use screening . Due on due Goal Tdap. Due on due Goal Influenza vaccine. Due on due Goal Colonoscopy. Due on due Goal Pneumococcal vaccine. Due on due Goal Lipid panel. Due on due Goal Lifestyle education regardin g diet completed History Of Present Illness Encounter Date Complaint History Of Prese nt Illness chronic conditions Additional in formation: med refills. No new c/o. Notes rash has resolved. Establishment New pt to our cl inic. Notes rash on lower legs, less so on forearms. [place] park, walks his dogs 3x/day Notes the park sprays the grounds regularly with unknown subs Functional Status Date Functional Assessmen t No Information Instructions Date Instruction Additional Infor porfirio meds refilled. Pt no katlyn he is moving Will f/u with new provider Related to Chronic obstructive pulmonary disease, unspecified Giving encouragement to exercise Related to Body mass index [BMI] 35.0-35.9, adult Lifestyle education regarding di et Related to Body mass index [BMI] 35.0-35.9, adult Prednisone 20mg BID x 5 days. Triamcinolone 0.1% BID x 1 week, no longer If not greatly improved, RTC Related to Dermatitis, unspecified Giving encouragement to exercise Related to Body mass index [BMI] 34.0-34.9, adult Lifestyle education regarding di et Related to Body mass index [BMI] 34.0-34.9, adult Assessments Type Assessment Date No Information Patient Care Teams Name Effective Dates (start - stop) Status Members No Information
--- OUTSIDE RECORDS SUMMARY | 2024-08-06 10:31 | XMS_ITS | Clinical Summary ---
Author Organization [facility] Address [address] [place] [address] Phone [email or web address] Care Team Providers Care Traffic Assistant Name Role Phone Kim Uribe MD Primary Care Provider [phone] Encounters Date Type Department Care Team Description 05/29/2024 [place] [id number] [place] [id number] Kim Uribe MD Pulmonary nodule (Primary Dx) from Last 3 Months Social History Tobacco Use Types Packs/Day Years Used Date Smoking Tobacco: Never Assessed Sex and Gender Information Value Date Recorded Sex Assigned at Male 05/09/2024 4:14 PM CDT Legal Sex Male 3:18 PM CDT Gender Identity Not on file Sexual Orientation Not on file Plan of Treatment Health Maintenance Due Date Last Done Comments CT Colonography 1950 Colonoscopy 1950 Colorectal Cancer Screening 1950 FIT-DNA 1949 FIT 1950 FOBT 1950 Medicare Annual Wellness (AWV) 1950 Sigmoidoscopy 1949 DTaP/Tdap/Td Vaccines (1 - Tdap) 1956 Depression Screening 1961 Pneumococcal Vaccine: 65+ Ye ars (1 of 1 - PCV) 06/08/1999 Influenza Vaccine (Season Ended) 2024 HIB Vaccines Aged Out No longer eligi ble based on patient's age to complete this topic HPV Vaccines Aged Out No longer eligi ble based on patient's age to complete this topic Hepatitis A Vaccines Aged Out No long er eligible based on patient's age to complete this topic Hepatitis B Vaccines Aged Out No long er eligible based on patient's age to complete this topic IPV Vaccines Aged Out No longer eligi ble based on patient's age to complete this topic Meningococcal B Vaccine Aged Out No l onger eligible based on patient's age to complete this topic Meningococcal Vaccine Aged Out No migue speedy eligible based on patient's age to complete this topic Rotavirus Vaccines Aged Out No longer eligible based on patient's age to complete this topic Insurance [facility] [employer] [employer] [employer] Care Teams Traffic Assistant Relationship Specialty Start Date End Date Kim Uribe MD [address] [place] [address] PCP - General 05/09/24
--- OUTSIDE RECORDS SUMMARY | 2024-08-06 10:31 | XMS_ITS | Encounter Summary ---
Author Organization [facility] Address [address] [place] [address] Care Team Providers Care Sex Offender Treatment Professional Name Role Phone Jeannette Llanos MD Primary Care Provider [phone] None, Provider Primary Care Provider Gordo Rojo DO Primary Care Provider [phone] Encounter Details Date Type Department Care Team (Late st Contact Info) Description 08/04/2019 Prep for Procedure [facility] Pre-Admission Testing [address] [place], [place] [id number] Carroll Roe MD [facility] [address] [place] [address] Social History Tobacco Use Types Packs/Day Years [...] on file Sexual Orientation Not on file COVID-19 Exposure Response Date Recorded In the last month, have you been in contact with someone who was confirmed or suspected to have Coronavirus / COVID-19? No / Unsure 08/04/2019 10:18 AM CDT documented as of this encounter Plan of Treatment Not on file documented as of this encounter Visit Diagnoses Diagnosis Pre-op exam- Primary Preoperative examination, unspecified documented in this encounter Additional Health Concerns Infection Onset Date Last Indicated Resolved Time COVID-19 Rule Out 08/11/2019 08/11/2019 08/12/2019 7:32 AM CDT documented as of this encounter Care Teams Sex Offender Treatment Professional Relationship Specialty Start Date End Date Jeannette Llanos MD PCP - General FAMILY PRACTICE 05/17/18 08/07/19 None, Provider, PCP - General 08/08/19 12/06/20 Gordo Villarreal DO PCP - General FAMILY PRACTICE 12/07/20 documented as of this encounter
== END 2024-08-06 10:15 | disposition home or self-care (01) ==
PROVIDERS: Visit Provider Physician Assistant
DX: J98.4 Other disorders of lung (principal); J43.9 Emphysema, unspecified; Z87.2 Personal history of diseases of the skin and subcutaneous tissue; J90 Pleural effusion, not elsewhere classified; R91.1 Solitary pulmonary nodule
CPT/HCPCS: 71250